=== PATIENT | male | born 1935 | race Caucasian/White ===

== ENCOUNTER 2020-12-30 13:46 | Inpatient (IN) | payer BC ==
[~2020-12-30] VITALS: Ht 182.9 cm; Wt 67.1 kg
[2020-12-30] MEDS ORDERED: IV NS 0.9% 500 ML BAG IV ONE ×2 (14:00→15:00)
--- NOTE | 2020-12-30 14:00 | NUR ---
The patient is bibra78, from [facility], more altered than usual, BS 120. Respiration regular and unlabored. Attached to the monitor. Warm blanket provided for comfort. Will continue to monitor the patient.
[2020-12-30 14:10] LABS: BASOPHILS # (AUTO) 0.1 /CMM (0.0-0.2); BASOPHILS % (AUTO) 0.7 % (0.0-2.0); EOSINOPHILS % (AUTO) 3.8 % (0.0-6.0); HEMATOCRIT 33 % (39-51); LYMPHOCYTES # (AUTO) 1.2 /CMM (0.8-4.8); LYMPHOCYTES % (AUTO) 13.4 % (20.0-44.0); MEAN CORPUSCULAR HGB CONC 33 g/dl (31.0-36.0); MEAN CORPUSCULAR VOLUME 92 fL (80-96); MONOCYTES # (AUTO) 1.2 /CMM (0.1-1.30); MONOCYTES % (AUTO) 13.1 % (2.0-12.0); NEUTROPHILS # (AUTO) 6.2 /CMM (1.8-8.9); PLATELET COUNT (AUTO) 251 /CMM (150-450); RED BLOOD CELL COUNT(AUTO) 3.59 MIL/uL (4.5-6.0)
[2020-12-30] MEDS ORDERED: AMLO-213 PO (14:15)
[2020-12-30] MEDS ORDERED: RISP0.2515 PO (14:15)
[2020-12-30] MEDS ORDERED: ZINC220C6 PO (14:15)
[2020-12-30] MEDS ORDERED: MEMA1CAP3 PO (14:15)
[2020-12-30] MEDS ORDERED: LEVO150T8 PO (14:15)
[2020-12-30] MEDS ORDERED: PANT40TA2 PO (14:15)
[2020-12-30] MEDS ORDERED: DIVA-76 PO (14:15)
[2020-12-30 14:25] LABS: ALANINE AMINOTRANSFERASE 9 U/L (12-78); ALBUMIN 2.4 g/dL (3.4-5.0); ALKALINE PHOSPHATASE 70 U/L (46-116); ASPARTATE AMINOTRANSFERASE 12 U/L (15-37); BILIRUBIN,DIRECT 0.1 mg/dL (0.0-0.2); BILIRUBIN,TOTAL 0.3 mg/dL (0.2-1.0); CALCIUM, SERUM 8.3 mg/dL (8.5-10.1); CARBON DIOXIDE 24 mmol/L (21-32); CHLORIDE 105 mmol/L (98-107); CREATININE 0.9 mg/dL (0.6-1.3); GLUCOSE 104 mg/dL (74-106); POTASSIUM 3.7 mmol/L (3.5-5.1); SODIUM SERUM 139 mmol/L (136-145); TOTAL PROTEIN, SERUM 6.1 g/dL (6.4-8.2); UREA NITROGEN, BLOOD 12 mg/dL (7-18)
--- NOTE | 2020-12-30 14:47 | NUR ---
URINE COLLECTED AND SENT TO THE LAB
[2020-12-30 15:07] LABS: BILIRUBIN,URINE Negative (NEGATIVE); COLOR,URINE YELLOW (YELLOW); LEUKOCYTE ESTERASE ,URINE Large (NEGATIVE); NITRITE, URINE Positive (NEGATIVE); PH,URINE 5.5 (5.0-8.0); PROTEIN,URINE Negative (NEGATIVE); UGLUCOSE Negative (NEGATIVE); UROBILINOGEN,URINE 0.2 EU/dL (0.2)
[2020-12-30 15:13] LABS: BACTERIA,URINE Many /HPF (None Seen); SQUAMOUS EPITHELIAL CELL,UR 0-2 /HPF (None Seen); WBC,URINE 81-100 /HPF (0-3)
--- NOTE | 2020-12-30 15:26 | NUR ---
[facility] CALLED THEY ARE WORKING ON IT AND WILL RELEASE IN A BIT.
[2020-12-30] MEDS ORDERED: MEROPENEM 1,000 MG in IV NS 0.9% 100 ML IV ONE (15:30)
--- NOTE | 2020-12-30 15:37 | NUR ---
MOVE SHEET SUBMITTED AND CALLED FOR TELE BED.
--- NOTE | 2020-12-30 15:39 | NUR ---
GOT BED 102
--- NOTE | 2020-12-30 16:34 | NUR ---
LAB CALLED PT COVID RESULT NEGATIVE, (-).
--- NOTE | 2020-12-30 16:36 | NUR ---
covid negative per lab
[2020-12-30 17:00] VITALS: BP 113/57
--- NOTE | 2020-12-30 17:00 | NUR ---
RN OPENING NOTES RECEIVED PT FROM ER, REPORT GIVEN BY IRENE BLUM. A/O X1. CONFUSED. STABLE ON ROOM AIR. IV ACCESS AT LFA #20 INTACT, PATENT AND FLUSHED. NO COMPLAINS OF PAIN. SKIN IS INTACT. FLEXION OF BLE. SAFETY MEASURES IN PLACE. BED LOCKED AND AT LOWEST POSITION WITH SIDE RAILS UP X3. CALL LIGHT WITHIN REACH. BELONGINGS LIST CHECKED. WILL CONTINUE TO MONITOR.
--- NOTE | 2020-12-30 17:09 | NUR ---
The patient is transfered to [facility] per acls protocol and in stable condition.
[2020-12-30] MEDS ORDERED: ACETAMINOPHEN 325 MG TABLET PO PRN (18:00)
[2020-12-30] MEDS ORDERED: Z GUARD REMEDY 2 OZ OINT TP PRN (18:00)
[2020-12-30] MEDS ORDERED: ONDANSETRON HCL/PF 4 MG/2 ML VIAL IVP PRN (18:00)
[2020-12-30] MEDS ORDERED: MAGNESIUM HYDROXIDE 30 ML UDC PO PRN (18:00)
[2020-12-30] MEDS ORDERED: HYDROCODONE/APAP 5/325MG TABLET PO PRN (18:00)
[2020-12-30] MEDS ORDERED: ZOLPIDEM TARTRATE 5 MG TABLET PO PRN (18:00)
[2020-12-30] MEDS ORDERED: MAG HYDROX/AL HYDROX/SIMETH 30 ML UDC PO PRN (18:00)
[2020-12-30] MEDS ORDERED: CEFTRIAXONE 1 G VIAL IM SCH (18:00)
[2020-12-30] MEDS: CEFTRIAXONE 1 G in IV D5W 50 ML IV SCH (18:27)
[2020-12-30] MEDS: AZITHROMYCIN 500 MG in IV D5W 250 ML IV SCH (19:14)
--- NOTE | 2020-12-30 19:35 | NUR ---
RN CLOSING NOTES NO SIGNIFICANT CHANGES THROUGHOUT THE SHIFT. ALL DUE MEDS GIVEN. NEEDS ATTENDED. NO SOB. DENIES PAIN. SAFETY MEASURES STILL IN PLACE. WILL ENDORSE TO NIGHT RN FOR GINNA.
--- NOTE | 2020-12-30 19:56 | NUR ---
RN NOTE PATIENT IN BED AWAKE. A/O X 1. NO SOB OR ANY RESPIRATORY DISTRESS. ON ROOM AIR, O2 SAT 97%. DENIES ANY PAIN OR DISCOMFORT. IV ACCESS ON LEFT FOREARM #20 PATENT AND INTACT. NO S/S OF INFILTRATION. BED LOCKED AND IN LOWEST POSITION. SAFETY MEASURES IMPLEMENTED. CALL LIGHT WITHIN REACH. WILL CONTINUE TO MONITOR.
[2020-12-30 20:00] VITALS: BP 102/59
[2020-12-31] VITALS: BP 113/55
[2020-12-31 04:00] VITALS: BP 117/67
--- NOTE | 2020-12-31 06:38 | NUR ---
RN NOTE PATIENT A/O X 1. NO SOB NOTED. ON ROOM AIR, O2 SAT 96%. DENIES ANY PAIN OR DISCOMFORT. IV ACCESS ON LEFT FOREARM #20 PATENT AND INTACT. NO S/S OF INFILTRATION. NO SIGNIFICANT CHANGES DURING THIS SHIFT. KEPT CLEAN AND DRY. BED LOCKED AND IN LOWEST POSITION. SAFETY MEASURES IMPLEMENTED. CALL LIGHT WITHIN REACH. WILL ENDORSE TO AM SHIFT.
[2020-12-31 06:57] LABS: BASOPHILS # (AUTO) 0.1 /CMM (0.0-0.2); BASOPHILS % (AUTO) 0.7 % (0.0-2.0); EOSINOPHILS % (AUTO) 1.2 % (0.0-6.0); HEMATOCRIT 33 % (39-51); LYMPHOCYTES # (AUTO) 0.9 /CMM (0.8-4.8); LYMPHOCYTES % (AUTO) 7.8 % (20.0-44.0); MEAN CORPUSCULAR HGB CONC 33 g/dl (31.0-36.0); MEAN CORPUSCULAR VOLUME 92 fL (80-96); MONOCYTES # (AUTO) 1.3 /CMM (0.1-1.30); MONOCYTES % (AUTO) 12.1 % (2.0-12.0); NEUTROPHILS # (AUTO) 8.7 /CMM (1.8-8.9); NEUTROPHILS % (AUTO) 78.2 % (43.0-81.0); PLATELET COUNT (AUTO) 233 /CMM (150-450); RED BLOOD CELL COUNT(AUTO) 3.64 MIL/uL (4.5-6.0)
--- NOTE | 2020-12-31 07:27 | NUR ---
RN NOTE PATIENT A/O X 1. NO SOB NOTED. ON ROOM AIR, O2 SAT 96%. DENIES ANY PAIN OR DISCOMFORT. IV ACCESS ON LEFT FOREARM #20 PATENT AND INTACT. NO S/S OF INFILTRATION. KEPT CLEAN AND DRY. BED LOCKED AND IN LOWEST POSITION. SAFETY MEASURES IMPLEMENTED. CALL LIGHT WITHIN REACH.
[2020-12-31 07:43] LABS: CALCIUM, SERUM 8.3 mg/dL (8.5-10.1); CARBON DIOXIDE 23 mmol/L (21-32); CHLORIDE 107 mmol/L (98-107); CREATININE 0.8 mg/dL (0.6-1.3); GLUCOSE 89 mg/dL (74-106); MAGNESIUM 1.8 mg/dL (1.8-2.4); PHOSPHORUS 2.8 mg/dL (2.5-4.9); POTASSIUM 3.8 mmol/L (3.5-5.1); SODIUM SERUM 140 mmol/L (136-145); UREA NITROGEN, BLOOD 12 mg/dL (7-18)
[2020-12-31 07:55] LABS: CHOLESTEROL 157 mg/dL (<200); HDL CHOLESTEROL 54 mg/dL (40-60); LDL 87 mg/dL (0-99); THYROID STIMULATING HORMONE < 0.007 uIU/mL (0.358-3.74); TRIGLYCERIDES 43 mg/dL (30-150)
[2020-12-31 08:00] VITALS: BP 99/63
[2020-12-31] MEDS: ENSURE ENLIVE 237 ML LIQUID (VANILLA) PO SCH ×3 (10:12→17:00)
[2020-12-31] MEDS: PANTOPRAZOLE 40 MG TABLET.DR PO SCH (10:12)
[2020-12-31 12:00] VITALS: BP 96/78
[2020-12-31 16:00] VITALS: BP 99/78
[2020-12-31] MEDS: CEFTRIAXONE 1 G in IV D5W 50 ML IV SCH (18:58)
--- NOTE | 2020-12-31 19:29 | NUR ---
RN NOTE PATIENT IN BED AWAKE. A/O X 1. NO SOB OR ANY RESPIRATORY DISTRESS. ON ROOM AIR, O2 SAT WNL. DENIES ANY PAIN OR DISCOMFORT. IV ACCESS ON LEFT FOREARM #20 PATENT AND INTACT. NO S/S OF INFILTRATION. BED LOCKED AND IN LOWEST POSITION. SAFETY MEASURES IMPLEMENTED. CALL LIGHT WITHIN REACH. PATIENT RESTING COMFORTABLY IN BED.
[2020-12-31] MEDS: AZITHROMYCIN 500 MG in IV D5W 250 ML IV SCH (19:37)
[2020-12-31 20:00] VITALS: BP 114/60
[2021-01-01 04:00] VITALS: BP 136/83
--- NOTE | 2021-01-01 06:51 | NUR ---
RN NOTE PATIENT IN BED A/O X 1. NO SOB NOTED. ON ROOM AIR, O2 SAT WNL. DENIES ANY PAIN OR DISCOMFORT. IV ACCESS ON RIGHT WRIST #24 PATENT AND INTACT. NO S/S OF INFILTRATION. NO SIGNIFICANT CHANGES. ALL NEEDS ATTENDED PROMPTLY. BED LOCKED AND IN LOWEST POSITION. SAFETY MEASURES IMPLEMENTED. CALL LIGHT WITHIN REACH. WILL ENDORSE TO AM SHIFT.
[2021-01-01 06:53] LABS: BASOPHILS # (AUTO) 0.1 /CMM (0.0-0.2); BASOPHILS % (AUTO) 1.2 % (0.0-2.0); EOSINOPHILS % (AUTO) 4.8 % (0.0-6.0); HEMATOCRIT 33 % (39-51); HEMOGLOBIN 10.9 g/dL (13.5-17.5); LYMPHOCYTES # (AUTO) 1.2 /CMM (0.8-4.8); LYMPHOCYTES % (AUTO) 12.6 % (20.0-44.0); MEAN CORPUSCULAR HGB CONC 33 g/dl (31.0-36.0); MEAN CORPUSCULAR VOLUME 93 fL (80-96); MONOCYTES # (AUTO) 1.6 /CMM (0.1-1.30); MONOCYTES % (AUTO) 17.1 % (2.0-12.0); NEUTROPHILS % (AUTO) 64.3 % (43.0-81.0); PLATELET COUNT (AUTO) 238 /CMM (150-450); RED BLOOD CELL COUNT(AUTO) 3.57 MIL/uL (4.5-6.0); WHITE BLOOD COUNT (AUTO) 9.3 K/uL (4.3-11.0)
[2021-01-01 07:24] LABS: ALBUMIN 2.4 g/dL (3.4-5.0); BILIRUBIN,TOTAL 0.4 mg/dL (0.2-1.0); CALCIUM, SERUM 8.3 mg/dL (8.5-10.1); CREATININE 0.7 mg/dL (0.6-1.3); MAGNESIUM 1.8 mg/dL (1.8-2.4); PHOSPHORUS 2.7 mg/dL (2.5-4.9); POTASSIUM 3.6 mmol/L (3.5-5.1)
--- NOTE | 2021-01-01 07:40 | NUR ---
MS/RN PT IS RESTING IN THE BED .AWAKE,ALERT.V/S STABLE,AFEBRILE.NO PAIN REPORTED AT THIS TIME.IV -HL. ON ROOM AIR,SAT O2-96%. INCONTINENT .BED BOUND.SKIN INTACT.LABS REVIEW.REPOSITION FOR COMFORT.
[2021-01-01 08:00] VITALS: BP 112/64
[2021-01-01] MEDS: PANTOPRAZOLE 40 MG TABLET.DR PO SCH (08:29)
[2021-01-01] MEDS: ENSURE ENLIVE 237 ML LIQUID (VANILLA) PO SCH ×3 (08:31→16:28)
--- NOTE | 2021-01-01 09:00 | NUR ---
MS/RN DUE MEDS ARE GIVEN ORDERED.PT EATS 50% FROM HIS MEAL TRAY HELPED WITH ASSISTANCE.
[2021-01-01 12:00] VITALS: BP 120/64
[2021-01-01 16:00] VITALS: BP 124/64
[2021-01-01] MEDS: CEFTRIAXONE 1 G in IV D5W 50 ML IV SCH (16:28)
[2021-01-01] MEDS: AZITHROMYCIN 500 MG in IV D5W 250 ML IV SCH (17:09)
--- NOTE | 2021-01-01 19:30 | NUR ---
MS RN OPENING NOTE RECEIVED PATIENT IN BED. A/OX1. TOLERATING ROOM AIR. RESPIRATIONS ARE EVEN AND UNLABORED. NO S/S SOB NOTED. NO C/O PAIN AT THIS TIME. IN NO APPARENT DISTRESS. IV ACCESS IN RIGHT WRIST #24 RUNNING ABX. BED IS LOW AND LOCKED, HOB ELEVATED IN HIGH FOWLERS, SIDE RIAL SUP X3, CALL LIGHT WITHIN REACH. WILL CONTINUE TO MONITOR THROUGHOUT SHIFT.
[2021-01-01 20:00] VITALS: BP 119/59
--- NOTE | 2021-01-01 21:44 | NUR ---
MS RN NOTE INFORMED LINEN CONTROLLER LEHR STRIPPER BRYN ALVAREZ THAT PATIENTS MED RECON HAS NOT BEEN REVIEWED.
[2021-01-01] MEDS: DIVALPROEX SODIUM 250 MG TABLET.DR PO SCH (22:04)
[2021-01-01] MEDS: DONEPEZIL 5 MG TABLET PO SCH (22:04)
[2021-01-02 04:00] VITALS: BP 119/60
--- NOTE | 2021-01-02 06:15 | NUR ---
MS RN CLOSING NOTE PATIENT RESTING IN BED. A/OX1. REMAINS TOLERATING ROOM AIR. NO RESP DISTRESS. NO C/O PAIN THROUGHOUT SHIFT. NO DISTRESS. IV ACCESS MAINTAINED IN RIGHT WRIST. BED REMAINS LOW AND LOCKED, HOB ELEVATED IN HIGH FOWLERS, SIDE RIALS UP X3, CALL LIGHT WITHIN REACH. WILL ENDORSE TO ONCOMING SHIFT.
[2021-01-02 06:17] LABS: BASOPHILS # (AUTO) 0.1 /CMM (0.0-0.2); BASOPHILS % (AUTO) 1.1 % (0.0-2.0); EOSINOPHILS % (AUTO) 4.8 % (0.0-6.0); HEMATOCRIT 31 % (39-51); HEMOGLOBIN 10.3 g/dL (13.5-17.5); LYMPHOCYTES # (AUTO) 1.6 /CMM (0.8-4.8); LYMPHOCYTES % (AUTO) 16.7 % (20.0-44.0); MEAN CORPUSCULAR HGB CONC 34 g/dl (31.0-36.0); MEAN CORPUSCULAR VOLUME 92 fL (80-96); MONOCYTES # (AUTO) 1.6 /CMM (0.1-1.30); MONOCYTES % (AUTO) 16.8 % (2.0-12.0); NEUTROPHILS # (AUTO) 5.9 /CMM (1.8-8.9); NEUTROPHILS % (AUTO) 60.6 % (43.0-81.0); PLATELET COUNT (AUTO) 260 /CMM (150-450); RED BLOOD CELL COUNT(AUTO) 3.31 MIL/uL (4.5-6.0); WHITE BLOOD COUNT (AUTO) 9.8 K/uL (4.3-11.0)
[2021-01-02 06:53] LABS: ALBUMIN 2.1 g/dL (3.4-5.0); BILIRUBIN,TOTAL 0.2 mg/dL (0.2-1.0); CALCIUM, SERUM 7.9 mg/dL (8.5-10.1); CREATININE 0.8 mg/dL (0.6-1.3); MAGNESIUM 1.8 mg/dL (1.8-2.4); PHOSPHORUS 2.6 mg/dL (2.5-4.9); POTASSIUM 4.1 mmol/L (3.5-5.1); TOTAL PROTEIN, SERUM 5.5 g/dL (6.4-8.2)
--- NOTE | 2021-01-02 07:30 | NUR ---
RN OPENING NOTES PATIENT PRESENT IN BED, A/OX1, ON ROOM AIR, SPO2 99%, NO SOB NOTED, FLACC SCORE 0, RESTING COMFORTABLY, IV LINE PATENT, INTACT, RUNNING TKO FLUIDS, TOLERATING WELL, HOB ELEVATED, BED LOCKED, IN LOWEST POSITION, CALL LIGHT IN REACH, WILL CONT TO MONITOR
[2021-01-02] MEDS: LEVOTHYROXINE SODIUM 75 MCG TABLET PO SCH (07:44)
[2021-01-02] MEDS: PANTOPRAZOLE 40 MG TABLET.DR PO SCH (07:44)
[2021-01-02] MEDS: ENSURE ENLIVE 237 ML LIQUID (VANILLA) PO SCH ×3 (07:48→17:15)
[2021-01-02 08:00] VITALS: BP 109/59
[2021-01-02] MEDS: ZINC SULFATE 220 MG CAPSULE PO SCH (08:47)
[2021-01-02] MEDS: MEMANTINE HCL 5 MG TABLET PO SCH (08:47)
[2021-01-02] MEDS: DIVALPROEX SODIUM 250 MG TABLET.DR PO SCH (08:47)
[2021-01-02] MEDS ORDERED: risperiDONE 0.25 MG TABLET PO SCH (09:00)
[2021-01-02 09:14] LABS: BAND % (MANUAL) 1 % (0.0-5.0); EOSINOPHILS % (MANUAL) 4 % (0-4); LYMPHOCYTES % (MANUAL) 25 % (16-48); MONOCYTES % (MANUAL) 8 % (0-11.0); NEUTROPHILS % (MANUAL) 62 (42-76)
[2021-01-02] MEDS: AMLODIPINE BESYLATE 10 MG TABLET PO SCH (09:50)
[2021-01-02] MEDS: MEROPENEM 1 G in IV NS 0.9% 100 ML IV SCH ×2 (11:29→18:55)
[2021-01-02 12:00] VITALS: BP 96/59
[2021-01-02] MEDS ORDERED: MEROPENEM 500 MG in IV NS 0.9% 50 ML IV SCH (13:00)
[2021-01-02] MEDS: AZITHROMYCIN 500 MG in IV D5W 250 ML IV SCH (17:38)
--- NOTE | 2021-01-02 19:01 | NUR ---
RN CLOSING NOTES REMAIN IN ROOM, NO ACUTE CHANGES DURING SHIFT, FOOD INTAKE WAS MORE THAN 75% FOR DINNER, WAS ABLE TO FINISH 2 BOTTLES OF ENSURE, COMFORT NEEDS ATTENDED, CLEANED, REPOSITIONED, MEDICATIONS GIVEN, WILL ENDORSE TO PM SHIFT RN FOR GINNA
--- NOTE | 2021-01-02 19:30 | NUR ---
RN NOTE RECEIVED PT SLEEPING, AROUSES EASILY. NO SIGNS OF DISTRESS OR PAIN NOTED. BREATHING EVEN AND UNLABORED. IV ON R WRIST PATENT AND INTACT, IV ATB MERREM RUNNING, NO SIGNS OF INFILTRATION NOTED. ALL SAFETY MEASURES IMPLEMENTED PER PROTOCOL. BED LOCKED IN LOWEST POSITION. SIDE RAILS UP. WILL CONTINUE TO MONITOR.
[2021-01-02 20:00] VITALS: BP 106/57
[2021-01-02] MEDS: OLANZAPINE 2.5 MG TABLET PO SCH (21:28)
[2021-01-02] MEDS: DONEPEZIL 5 MG TABLET PO SCH (21:28)
[2021-01-03] MEDS: MEROPENEM 1 G in IV NS 0.9% 100 ML IV SCH ×3 (03:17→18:36)
[2021-01-03 04:00] VITALS: BP 120/63
--- NOTE | 2021-01-03 07:05 | NUR ---
RN CLOSING NOTES PT REMAIN STABLE. NO SIGNIFICANT CHANGES NOTED. BREATHING EVEN AND UNLABORED, TOLERATING ROOM AIR, REMAIN AFEBRILE. ALL NEEDS ATTENDED. WILL ENDORSE TO NEXT SHIFT NURSE FOR GINNA.
--- NOTE | 2021-01-03 07:30 | NUR ---
RN OPENING NOTES PATIENT PRESENT IN BED, A/OX2, ON ROOM AIR, SATURATING WELL, SPO2 97%, NO SOB NOTED, DENIES PAIN , SKIN INTACT ; RESTING COMFORTABLY, IV LINE PATENT, INTACT, RUNNING TKO FLUIDS, TOLERATING WELL, HOB ELEVATED, BED LOCKED, IN LOWEST POSITION, CALL LIGHT IN REACH, WILL CONT TO MONITOR
[2021-01-03] MEDS: PANTOPRAZOLE 40 MG TABLET.DR PO SCH (08:19)
[2021-01-03] MEDS: LEVOTHYROXINE SODIUM 75 MCG TABLET PO SCH (08:19)
[2021-01-03] MEDS: ZINC SULFATE 220 MG CAPSULE PO SCH (08:19)
[2021-01-03] MEDS: MEMANTINE HCL 5 MG TABLET PO SCH (08:20)
[2021-01-03] MEDS: DIVALPROEX SODIUM 250 MG TABLET.DR PO SCH (08:20)
[2021-01-03] MEDS: AMLODIPINE BESYLATE 10 MG TABLET PO SCH (08:24)
[2021-01-03] MEDS: ENSURE ENLIVE 237 ML LIQUID (VANILLA) PO SCH ×3 (08:38→17:07)
[2021-01-03 11:00] VITALS: BP 104/64
[2021-01-03 12:00] VITALS: BP 104/64
[2021-01-03] MEDS ORDERED: AZITHROMYCIN 250 MG TABLET PO SCH (18:00)
--- NOTE | 2021-01-03 18:21 | NUR ---
PER ENGINEER AUTOMATED EQUIPMENT DC PENDING DUE INSURANCE ISSUES, NOTIFIED
--- NOTE | 2021-01-03 19:01 | NUR ---
RN CLOSING NOTES REMAINS IN ROOM, NO ACUTE CHANGES DURING SHIFT, FOOD INTAKE WAS MORE THAN 75% FOR DINNER, WAS ABLE TO FINISH 3 BOTTLES OF ENSURE, COMFORT NEEDS ATTENDED, CLEANED, REPOSITIONED, MEDICATIONS GIVEN, WILL ENDORSE TO PM SHIFT RN FOR GINNA
[2021-01-03 20:00] VITALS: BP 101/50
--- NOTE | 2021-01-03 20:00 | NUR ---
RN OPENING NOTES PATIENT IN BED, A/OX2, ON ROOM AIR, SPO2 98%, NO SOB NO DISTRESS NOTED BREATHING EVEN UNLABORED,NO COMPLAIN OF PAIN 0/10 NO FACIAL GRIMACES NOTED , RESTING COMFORTABLY, IV LINE PATENT, INTACT, RUNNING TKO FLUIDS, TOLERATING WELL, HOB ELEVATED, BED LOCKED, IN LOWEST POSITION, CALL LIGHT IN REACH, WILL CONT TO MONITOR ,PTS DISCHARGE HOLD D/T INSURANCE ISSUE ,PENDING SNF PLACEMENT,WILL CONTINUE TO MONITOR PTS.
[2021-01-03] MEDS: DONEPEZIL 5 MG TABLET PO SCH (21:09)
[2021-01-03] MEDS: OLANZAPINE 2.5 MG TABLET PO SCH (21:09)
[2021-01-04] MEDS: MEROPENEM 1 G in IV NS 0.9% 100 ML IV SCH ×3 (03:31→18:39)
[2021-01-04 04:00] VITALS: BP 107/59
--- NOTE | 2021-01-04 07:17 | NUR ---
RN CLOSING NOTE: PATIENT REMAINS IN ROOM IN NO SIGNS OF RESPIRATORY DISTRESS, PATIENT STILL ON ROOM AIR;TOLERATING WELL SATURATING @ >95% SP02. SAFETY MEASURES IMPLEMENTED, BED IN LOWEST POSITION, LOCKED, SIDE RAILS UP, CALL LIGHT WITHIN REACH. ALL NEEDS AND ORDERS ADDRESSED DURING THE SHIFT. IV ACCESS MAINTAINED INTACT, SECURED AND FLUSHING WELL. ALL DUE MEDS GIVEN ORDERED & SCHEDULED ; PATIENT TOLERATED WELL. PATIENT KEPT CLEAN AND COMFORTABLE WITHIN THE SHIFT. PATIENT ENDORSED TO INCOMING SHIFT RN WITH STABLE VITAL SIGN AND FOR CONTINUITY OF CARE.
--- NOTE | 2021-01-04 07:30 | NUR ---
RN OPENING NOTE PATIENT PRESENT IN BED, RESTING COMFORTABLY, ON ROOM AIR, RESPIRATIONS EVEN AND UNLABORED, SPO2 98%, DENIES PAIN, REPOSITIONED FOR COMFORT, IV LINE INTACT, PATENT, RUNNING TKO NS @ 10 CC/HR, TOLERATING WELL, SAFETY MEASURES IN PLACE, HOB ELEVATED, BED LOCKED, IN LOWEST POSITION, WILL CONT TO MONITOR
[2021-01-04] MEDS: LEVOTHYROXINE SODIUM 75 MCG TABLET PO SCH (07:44)
[2021-01-04] MEDS: PANTOPRAZOLE 40 MG TABLET.DR PO SCH (07:44)
[2021-01-04] MEDS: ENSURE ENLIVE 237 ML LIQUID (VANILLA) PO SCH ×3 (07:44→17:22)
[2021-01-04] MEDS: DIVALPROEX SODIUM 250 MG TABLET.DR PO SCH (08:47)
[2021-01-04] MEDS: MEMANTINE HCL 5 MG TABLET PO SCH (08:47)
[2021-01-04] MEDS: AMLODIPINE BESYLATE 10 MG TABLET PO SCH (08:48)
[2021-01-04] MEDS: ZINC SULFATE 220 MG CAPSULE PO SCH (08:48)
[2021-01-04 12:00] VITALS: BP 109/60
--- NOTE | 2021-01-04 18:45 | NUR ---
RN CLOSING NOTES RESTING COMFORTABLY IN BED, NO ACUTE CHANGES DURING SHIFT, MEDICATIONS GIVEN, COMFORT NEEDS ATTENDED, CLEANED, REPOSITIONED,WILL ENDORSE TO PM SHIFT RN FOR GINNA
[2021-01-04 20:00] VITALS: BP 134/57
[2021-01-05] MEDS: DONEPEZIL 5 MG TABLET PO SCH ×2 (00:04→21:42)
[2021-01-05] MEDS: OLANZAPINE 2.5 MG TABLET PO SCH ×2 (00:05→21:43)
[2021-01-05] MEDS: MEROPENEM 1 G in IV NS 0.9% 100 ML IV SCH (03:13)
--- NOTE | 2021-01-05 03:51 | NUR ---
RN notes Alert and oriented with confusion, slurred speech. Lying in bed resting comfortably with no distress noted. Breathing even and unlabored, room air well tolerated. No complaint of pain. No significant change of condition. Vital signs wnl. Kept clean and dry. Will endorse to next shift for continuity of care.
[2021-01-05 04:00] VITALS: BP 115/74
--- NOTE | 2021-01-05 08:00 | NUR ---
RN NOTES RECEIVED PATIENT IN THE BED A/O X1/2, WITH FORGETFULNESS. PATIENT TOTAL CARE, TOTAL ASSIST TO FEEDING PRONE TO ASPIRATION PRECAUTION, KEEP HOB ELEVATED DURING FEEDING 90 DEGREE. ADMINISTERED SCHEDULED MEDICATION WITH CRUSHED AND MIXED WITH APPLE SAUCE. PATIENT HAS IV TKO 10ML/HR INFUSION ON RIGHT WRIST. PATIENT INCONTINENT, ASSIST TURN AND REPOSTION Q 2 HR, CALL LIGHT WITHIN TO REACH. WILL MONITORING.
[2021-01-05] MEDS: ENSURE ENLIVE 237 ML LIQUID (VANILLA) PO SCH ×3 (08:32→16:27)
[2021-01-05] MEDS: AMLODIPINE BESYLATE 10 MG TABLET PO SCH (08:47)
[2021-01-05] MEDS: ZINC SULFATE 220 MG CAPSULE PO SCH (08:48)
[2021-01-05] MEDS: PANTOPRAZOLE 40 MG TABLET.DR PO SCH (08:48)
[2021-01-05] MEDS: DIVALPROEX SODIUM 250 MG TABLET.DR PO SCH (08:48)
[2021-01-05] MEDS: LEVOTHYROXINE SODIUM 75 MCG TABLET PO SCH (08:48)
[2021-01-05] MEDS: MEMANTINE HCL 5 MG TABLET PO SCH (08:48)
[2021-01-05] MEDS ORDERED: MEROPENEM 500 MG in IV NS 0.9% 100 ML IV SCH (10:00)
--- NOTE | 2021-01-05 10:00 | NUR ---
rn notes inserted new iv access on left FA infusing tko at 10ml/hr.
--- NOTE | 2021-01-05 11:23 | NUR ---
rn notes patient congested upper chest and keep coughing, notified DR Teran for orders. also suction, and put on o2-2lnc. will monitoring. waiting Md responding.
--- NOTE | 2021-01-05 11:34 | NUR ---
RN NOTES get respond back from hospitalist Dr Rojas and get order chest x-ray stat, order taken and carried out.
[2021-01-05] MEDS: MEROPENEM 500 MG in IV NS 0.9% 100 ML IV SCH ×2 (11:41→20:28)
--- NOTE | 2021-01-05 11:52 | NUR ---
RN NOTES HELD INSURE BECAUSE PATIENT PRONE TO ASPIRATION.
[2021-01-05 12:00] VITALS: BP 115/62
--- NOTE | 2021-01-05 12:46 | NUR ---
rn notes FINDINGS: The heart is within normal limits. The thoracic aorta is calcified. The lungs are clear. There is no pleural effusion or pneumothorax. patient on o2-2lnc, prone to aspiration precaution. assist turn and reposition q 2 hr. will monitoring.
[2021-01-05] MEDS ORDERED: ALBUTEROL HALF STRENGTH 1.25 MG/3 ML VIAL.NEB NEB PRN (16:30)
--- NOTE | 2021-01-05 16:36 | NUR ---
RN NOTES PATIENT CONFUSED, CONGESTED ON O22LNC . GETTING BREATHING TX AT THIS TIME VIA RT. SON NEXT TO THE BED.
--- NOTE | 2021-01-05 17:33 | NUR ---
rn notes patient coughing no stop , lots of secretion, suction, get new order via hospitalist hydrocodone 5mg syrup. order taken and carried out.
[2021-01-05] MEDS ORDERED: HYDROCODONE BIT/HOMATROPINE 5 ML UDC PO PRN (18:00)
--- NOTE | 2021-01-05 18:08 | NUR ---
rn notes administered hydrocodone syrup 5 ml for cough prn. assist eating. Patient on [id number], suction, needs attended and anticipated. call light within to reach. assist turn and reposition q 2 hr. endorsed oncoming nurse dena.
[2021-01-05 20:00] VITALS: BP 106/54
--- NOTE | 2021-01-05 20:00 | NUR ---
rn note received pt in bed a/a/ox1, pt on ra sating 95%, pt has unlabored breathing will continue with plan ofa care.
[2021-01-06] MEDS: MEROPENEM 500 MG in IV NS 0.9% 100 ML IV SCH ×3 (03:54→20:23)
[2021-01-06 04:00] VITALS: BP 120/58
--- NOTE | 2021-01-06 07:22 | NUR ---
rn note report given to oncoming shift for dena.
--- NOTE | 2021-01-06 07:30 | NUR ---
RN OPENING NOTE PATIENT IS IN BED WITH HBO AT SEMI FOWLERS POSITION. PATIENT IS CURRENTLY ON 2L NC WITH NO SIGNS OF LABORED BREATHING. SKIN IS INTACT. RWRIST#20 IS PATENT AND INTACT. BED IS LOCKED IN THE LOWEST POSITION, 3 GUARD RAILS RAISED, CALL GREY WITHIN REACH, AND ALL HOSPITAL SAFETY PRECAUTIONS ARE BEING FOLLOWED. WILL CONTINUE TO MONITOR THROUGHOUT SHIFT.
[2021-01-06] MEDS: MEMANTINE HCL 5 MG TABLET PO SCH (08:12)
[2021-01-06] MEDS: ZINC SULFATE 220 MG CAPSULE PO SCH (08:12)
[2021-01-06] MEDS: DIVALPROEX SODIUM 250 MG TABLET.DR PO SCH (08:12)
[2021-01-06] MEDS: LEVOTHYROXINE SODIUM 75 MCG TABLET PO SCH (08:12)
[2021-01-06] MEDS: ENSURE ENLIVE 237 ML LIQUID (VANILLA) PO SCH ×3 (08:13→17:00)
[2021-01-06] MEDS: PANTOPRAZOLE 40 MG TABLET.DR PO SCH (08:13)
[2021-01-06] MEDS: AMLODIPINE BESYLATE 10 MG TABLET PO SCH (08:13)
[2021-01-06 16:00] VITALS: BP 109/68
--- NOTE | 2021-01-06 17:00 | NUR ---
rn note administered tylenol for fever of 99.5. will continue to monitor.
--- NOTE | 2021-01-06 18:40 | NUR ---
RN CLOSING NOTE PATIENT IS IN BED WITH HBO AT SEMI FOWLERS POSITION. PATIENT IS CURRENTLY ON 2L NC WITH NO SIGNS OF LABORED BREATHING. SKIN IS INTACT. RWRIST#20 IS PATENT AND INTACT. BED IS LOCKED IN THE LOWEST POSITION, 3 GUARD RAILS RAISED, CALL GREY WITHIN REACH, AND ALL HOSPITAL SAFETY PRECAUTIONS ARE BEING FOLLOWED. ALL DUE MEDS GIVEN AND PATIENT REMAINED STABLE THROUGHOUT SHIFT. WILL ENDORSE TO TOP CAGER RN FOR GINNA.
--- NOTE | 2021-01-06 20:00 | NUR ---
MS RN NOTE PT IN BED ASLEEP, AROSUABLE. A/O X 1, NO SOB, NO DISTRESS OR DISCOMFORT NOTED. NO S/S OF PAIN NOTED. ON O2 2L VIA N/C O2 SAT 97%. RT WRIST SL # 20 G INTACT AND PATENT. SIDE RAILS UP X 3 AND CALL LIGHT WITHIN REACH. VSS. CONTINUE TO MONITOR HIM.
[2021-01-06] MEDS: OLANZAPINE 2.5 MG TABLET PO SCH (21:34)
[2021-01-06] MEDS: DONEPEZIL 5 MG TABLET PO SCH (21:34)
[2021-01-07] MEDS: MEROPENEM 500 MG in IV NS 0.9% 100 ML IV SCH ×2 (03:28→12:20)
[2021-01-07 04:00] VITALS: BP 108/59
--- NOTE | 2021-01-07 06:47 | NUR ---
MS RN NOTE PT IN BED ASLEEP, NO DISTRESS OR DISCOMFORT NOTED. DENIES PAIN. NO CHANGE IN CONDITION DURING THE SHIFT. WILL ENDORSE TO DAY SHIFT NURSE FOR CONTINUE TO CARE.
--- NOTE | 2021-01-07 07:30 | NUR ---
RN OPENING NOTE Patient is alert and responsive to verbal and physical stimuli. He is on 02 2lpm via n/c with 02 sat of 98%. No c.o pain or discomfort. hob kept elevated. Bed is in lowest and locked position. Call light within reach.
[2021-01-07 08:00] VITALS: BP 100/60
[2021-01-07] MEDS: AMLODIPINE BESYLATE 10 MG TABLET PO SCH (09:51)
[2021-01-07] MEDS: MEMANTINE HCL 5 MG TABLET PO SCH (09:51)
[2021-01-07] MEDS: PANTOPRAZOLE 40 MG TABLET.DR PO SCH (09:51)
[2021-01-07] MEDS: LEVOTHYROXINE SODIUM 75 MCG TABLET PO SCH (09:52)
[2021-01-07] MEDS: DIVALPROEX SODIUM 250 MG TABLET.DR PO SCH (09:52)
[2021-01-07] MEDS: ENSURE ENLIVE 237 ML LIQUID (VANILLA) PO SCH ×3 (09:52→17:16)
[2021-01-07] MEDS ORDERED: ZINC SULFATE 220 MG CAPSULE PO SCH (12:00)
--- NOTE | 2021-01-07 14:00 | NUR ---
message left to Ramona ndiaye pt. accepted at [facility] and ambulnce pickup at 4pm.
[2021-01-07 16:00] VITALS: BP 104/57
--- NOTE | 2021-01-07 18:51 | NUR ---
Patient was discharged with ambulance gaurav in a stable condition. On 02 2 liters via n/c with 02 of 98%. No grimacing or moaning noted. Report called in to VIKTORIA dietz and informed regarding patient's condition and medications. Patient left the facility in good stable condition. IV access left in for continuation of medications.
[2021-01-17] MEDS ORDERED: DIVALPROEX SODIUM 125 MG TABLET.DR PO SCH (09:00)
== END 2021-01-07 16:00 | DRG 689 ==
LOC: ER 13:51 → TELE1 15:48 → MEDSG1 12-31 08:19
PROVIDERS: ADMIT Student in an Organized Health Care Education/Training Program
DX: N39.0 Urinary tract infection, site not specified (principal); G93.41 Metabolic encephalopathy; E44.0 Moderate protein-calorie malnutrition; Z16.12 Extended spectrum beta lactamase (ESBL) resistance; E03.9 Hypothyroidism, unspecified; D64.9 Anemia, unspecified; I10 Essential (primary) hypertension; Z20.822 Contact with and (suspected) exposure to COVID-19; K21.9 Gastro-esophageal reflux disease without esophagitis; B96.20 Unspecified Escherichia coli [E. coli] as the cause of diseases classified elsewhere; F03.90 Unspecified dementia, unspecified severity, without behavioral disturbance, psychotic disturbance, mood disturbance, and anxiety; R13.10 Dysphagia, unspecified
CPT/HCPCS: 36415; 70450-TC; 71045-TC; 80048-TC; 80053-TC; 80061-TC; 80076-TC; 81001; 83605-TC; 83735-TC; 84100-TC; 84443-TC; 84484-TC; 85025-TC; 85730-TC; 87040-TC; 87081-TC; 87086-TC; 87186-TC; 94799-TC; 97112-TC; 97530-TC; G0378; J0456; J0696; J2185; J7030; J7040; J7050; J7060; U0003

== ENCOUNTER 2021-02-10 19:22 | Inpatient (IN) | payer BC ==
[~2021-02-10] VITALS: Ht 182.9 cm; Wt 62.1 kg
[~2021-02-10 19:22] MED LIST: AMLO-213 PO; DIVA-76 PO; LEVO150T8 PO; MEMA1CAP3 PO; PANT40TA2 PO; RISP0.2515 PO; ZINC220C6 PO
--- NOTE | 2021-02-10 19:24 | NUR ---
ROJELIO Levi FROM [place] FOR AMS. PER EMS PT HAS AN EPISODE OF CONFUSION AND WAS NOT ANSWERING THE STAFF 1 HR SHAKER OUT. ON TRIAGE PT REPONSIVE, OX2, PT TO BED 6, PLACED ON MONIOR, NOT IN ACUTE DISTRESS, PENDING ER PROVIDER [place]
[2021-02-10 20:18] LABS: BASOPHILS # (AUTO) 0.1 /CMM (0.0-0.2); BASOPHILS % (AUTO) 0.2 % (0.0-2.0); EOSINOPHILS % (AUTO) 0.1 % (0.0-6.0); HEMATOCRIT 36 % (39-51); HEMOGLOBIN 11.6 g/dL (13.5-17.5); LYMPHOCYTES # (AUTO) 0.5 /CMM (0.8-4.8); LYMPHOCYTES % (AUTO) 2.1 % (20.0-44.0); MEAN CORPUSCULAR HGB CONC 32 g/dl (31.0-36.0); MEAN CORPUSCULAR VOLUME 94 fL (80-96); MONOCYTES # (AUTO) 1.9 /CMM (0.1-1.30); MONOCYTES % (AUTO) 7.8 % (2.0-12.0); NEUTROPHILS # (AUTO) 21.8 /CMM (1.8-8.9); NEUTROPHILS % (AUTO) 89.8 % (43.0-81.0); PLATELET COUNT (AUTO) 377 /CMM (150-450); RED BLOOD CELL COUNT(AUTO) 3.89 MIL/uL (4.5-6.0); WHITE BLOOD COUNT (AUTO) 24.3 K/uL (4.3-11.0)
--- NOTE | 2021-02-10 20:34 | NUR ---
BACK FROM CT
[2021-02-10 20:54] LABS: CALCIUM, SERUM 9.1 mg/dL (8.5-10.1); CARBON DIOXIDE 18 mmol/L (21-32); CHLORIDE 104 mmol/L (98-107); CREATININE 1.8 mg/dL (0.6-1.3); GLUCOSE 180 mg/dL (74-106); POTASSIUM 4.4 mmol/L (3.5-5.1); SODIUM SERUM 142 mmol/L (136-145); UREA NITROGEN, BLOOD 17 mg/dL (7-18)
[2021-02-10 20:56] LABS: ABG BASE EXCESS -5.8 mmol/L; ABG OXYGEN SATURATION 94.7 % (92.0-98.5); ABG PCO2 24.8 mmHg (35.0-45.0); ABG PH 7.444 (7.350-7.450); ABG PO2 77.3 mmHg (75.0-100.0); AaDO2 150.6 mmHg; COHb 0.1 % (0.5-1.5); MetHb 0.5 % (0.0-1.5); O2Hb 94.1 % (94.0-97.0); SITE, ABG Right Radial; VENT MODE, BG 4 LNC
[2021-02-10] MEDS ORDERED: VANCOMYCIN 1 GM in IV D5W 250 ML IV ONE (21:00)
[2021-02-10] MEDS ORDERED: MEROPENEM 1,000 MG in IV NS 0.9% 100 ML IV ONE (21:00)
[2021-02-10 21:10] LABS: ALANINE AMINOTRANSFERASE 15 U/L (12-78); ALKALINE PHOSPHATASE 102 U/L (46-116); ASPARTATE AMINOTRANSFERASE 15 U/L (15-37); BILIRUBIN,DIRECT 0.2 mg/dL (0.0-0.2); BILIRUBIN,TOTAL 0.6 mg/dL (0.2-1.0); TOTAL PROTEIN, SERUM 7.6 g/dL (6.4-8.2)
[2021-02-10 21:35] LABS: BILIRUBIN,URINE NEGATIVE (NEGATIVE); COLOR,URINE YELLOW (YELLOW); LEUKOCYTE ESTERASE ,URINE NEGATIVE (NEGATIVE); NITRITE, URINE NEGATIVE (NEGATIVE); PROTEIN,URINE NEGATIVE (NEGATIVE); UGLUCOSE NEGATIVE (NEGATIVE); UROBILINOGEN,URINE 0.2 EU/dL (0.2)
[2021-02-10] MEDS ORDERED: VANCOMYCIN 1 GM VIAL ONE (21:54)
[2021-02-10] MEDS ORDERED: MEROPENEM 1 G VIAL IV ONE (21:54)
[2021-02-10] MEDS ORDERED: IV NS 0.9% 1,000 ML BAG IV ONE (22:00)
--- NOTE | 2021-02-11 00:36 | NUR ---
REPORT GIVEN TO ABRAN BLUM FOR GINNA
--- NOTE | 2021-02-11 00:50 | NUR ---
ADMISSION RN NOTES, RECEIVED 86 YEAR OLD MALE FROM ER DEPARTMENT ACCOMPANIED BY 2 NURSES VIA STRETCHER, UNDER MEDICAL SERVICES OF DR VICTOR MANUEL PISANO MD, WITH ADMITTING DX SEPSIS, PATIENT A/O TO SELF, BREATHING EVEN AND UNLABORED, NO SOB/ACUTE DISTRESS NOTED AT 2LPM VIA NC 02 95% WITH VS 120/72, 90, 20, 97.8, NONAMBULATORY, AFEBRILE WITH BUE/BLE CONTRACTURES, WITH PERINEAL AND BUTTOCKS REDNESS WELL BILATERAL FEET/HEELS REDNESS, AND SKIN TEAR IN RIGHT ARM, IV SITE IN RIGHT HAND 20G, BED BATH GIVEN UPON ADMISSION ATTACHED TO TELE MONITOR AND NSR NOTED WITH HR 90S, CLEAN AND DRY, AND REPOSITION PROVIDED, BED LOCKED AND LOWEST POSITION, WITH S/R OF BED 2X UP, WILL CONTINUE TO MONITOR CLOSELY..
[2021-02-11] MEDS ORDERED: ZOLPIDEM TARTRATE 5 MG TABLET PO PRN (01:00)
[2021-02-11] MEDS ORDERED: MAG HYDROX/AL HYDROX/SIMETH 30 ML UDC PO PRN (01:00)
[2021-02-11] MEDS ORDERED: MAGNESIUM HYDROXIDE 30 ML UDC PO PRN (01:00)
[2021-02-11] MEDS ORDERED: ONDANSETRON HCL/PF 4 MG/2 ML VIAL IVP PRN (01:00)
[2021-02-11] MEDS ORDERED: Z GUARD REMEDY 2 OZ OINT TP PRN (01:00)
[2021-02-11] MEDS ORDERED: ACETAMINOPHEN 325 MG TABLET PO PRN (01:00)
[2021-02-11] MEDS: IV NS 0.9% 1,000 ML IV SCH ×2 (01:56→11:59)
[2021-02-11 04:00] VITALS: BP 115/87
[2021-02-11] MEDS ORDERED: CEFEPIME 2 GM in IV D5W 100 ML IV ONE (05:00)
[2021-02-11] MEDS ORDERED: CEFEPIME 2 GM in IV D5W 100 ML IV SCH (05:00)
[2021-02-11 06:52] LABS: CALCIUM, SERUM 8.3 mg/dL (8.5-10.1); CREATININE 1.2 mg/dL (0.6-1.3); POTASSIUM 3.8 mmol/L (3.5-5.1)
[2021-02-11 06:57] LABS: ALBUMIN 2.7 g/dL (3.4-5.0); BILIRUBIN,DIRECT 0.2 mg/dL (0.0-0.2); BILIRUBIN,TOTAL 0.5 mg/dL (0.2-1.0); TOTAL PROTEIN, SERUM 6.7 g/dL (6.4-8.2)
--- NOTE | 2021-02-11 07:00 | NUR ---
RN NOTES, NO SIGNIFICANT CHANGE IN CONDITION DURING THE REST OF THE SHIFT CONTINUE WITH IVF ORDERED.
[2021-02-11] MEDS: AMLODIPINE BESYLATE 10 MG TABLET PO SCH (08:23)
[2021-02-11] MEDS: CEFEPIME 2 GM in IV D5W 100 ML IV SCH ×2 (08:23→19:37)
[2021-02-11] MEDS: LEVOTHYROXINE SODIUM 75 MCG TABLET PO SCH (08:23)
[2021-02-11] MEDS: MEMANTINE HCL 5 MG TABLET PO SCH ×2 (08:37→17:45)
--- NOTE | 2021-02-11 11:17 | NUR ---
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 RECOMMENDATIONS MADE FOR SKIN PROTECTION. DISCUSSED WITH NURSING STAFF. PT NOTED TO BE INCONTINENT. PT IS ON JIA ISOFLEX LOW AIRLOSS BED. IN AGREEMENT WITH PLAN OF CARE. Addendum: 02/11/21 at 1119 by DEMETRIO GUTIÉRREZ WNDNU Amended: Links added.
[2021-02-11] MEDS: ENSURE ENLIVE 237 ML LIQUID (VANILLA) PO SCH ×2 (13:00→17:00)
[2021-02-11] MEDS: ENOXAPARIN SODIUM 40 MG/0.4 ML DISP.SYRIN SQ SCH (13:02)
[2021-02-11] MEDS: IV D5W 1,000 ML IV PRN (17:14)
[2021-02-11] MEDS: VANCOMYCIN 1 GM in IV D5W 250 ML IV SCH (17:18)
[2021-02-11] MEDS: CLOTRIMAZOLE 1% 15 GM TUBE TP SCH (17:19)
[2021-02-11] MEDS ORDERED: Medication Not On Formulary EA (Memantine HCl/Donepezil HCl (Namzaric 28 mg-10 mg Capsul PO SCH (18:00)
--- NOTE | 2021-02-11 19:10 | NUR ---
RN NOTE RECEIVED PATIENT IN BED RESTING ALERT ORIENTED X1-2 VERBALLY RESPONSIVE ON 2L OXYGEN VIA NASAL CANNULA, O2:96% IV SITE IS ON RIGHT HAND INTACT PATENT IV D5W RUNNING 60CC/HR,CONDOM CATHETER IN PLACE URINE DRAINING YELLOW/CLEAR,SAFETY MEASURE IMPLEMENT BED IN LOW POSITION AND LOCKED,BED ALARM IS ON CONTINUE TO MONITOR.
--- NOTE | 2021-02-11 19:12 | NUR ---
RN CLOSING NOTES Patient is alert and oriented x 1/2. On 2 liters 02 via n/c with 02 sat of 99%. Condom cath applied to prevent further skin breakdown.Turned and repositioned q2h and prn. No c/o pain or discomfort. Bed is in lowest and locked position. Call light with in reach.Endorsed to next shift for GINNA.
[2021-02-11 20:00] VITALS: BP 108/71
[2021-02-11] MEDS: DONEPEZIL 5 MG TABLET PO SCH (21:37)
--- NOTE | 2021-02-11 22:00 | NUR ---
RN NOTE THERE IS AN ORDER FOR ENEMA STAT,PATIENT HAD BOWEL MOVEMENT AT 21:45,CALLED DR QUEVEDO SHE SAID HOLD IT FOR NOW NOTED AND CARRIED OUT.
[2021-02-12] VITALS: BP 118/58
[2021-02-12 05:41] VITALS: BP 100/58
[2021-02-12 05:56] LABS: BASOPHILS # (AUTO) 0.1 /CMM (0.0-0.2); EOSINOPHILS % (AUTO) 5.3 % (0.0-6.0); HEMATOCRIT 27 % (39-51); HEMOGLOBIN 9.1 g/dL (13.5-17.5); LYMPHOCYTES # (AUTO) 1.1 /CMM (0.8-4.8); LYMPHOCYTES % (AUTO) 10.8 % (20.0-44.0); MEAN CORPUSCULAR HGB CONC 33 g/dl (31.0-36.0); MEAN CORPUSCULAR VOLUME 93 fL (80-96); MONOCYTES # (AUTO) 1.2 /CMM (0.1-1.30); NEUTROPHILS # (AUTO) 6.9 /CMM (1.8-8.9); NEUTROPHILS % (AUTO) 70.9 % (43.0-81.0); PLATELET COUNT (AUTO) 202 /CMM (150-450); RED BLOOD CELL COUNT(AUTO) 2.97 MIL/uL (4.5-6.0); WHITE BLOOD COUNT (AUTO) 9.7 K/uL (4.3-11.0)
[2021-02-12 06:52] LABS: CALCIUM, SERUM 7.9 mg/dL (8.5-10.1); CREATININE 0.8 mg/dL (0.6-1.3); MAGNESIUM 1.9 mg/dL (1.8-2.4); PHOSPHORUS 2.2 mg/dL (2.5-4.9)
--- NOTE | 2021-02-12 07:30 | NUR ---
RN CLOSING NOTES Patient is alert and oriented x 1 On 2 liters 02 via n/c with 02 sat of 98%. Condom cath noted to prevent further skin breakdown.Turned and repositioned q2h and prn. No c/o pain or discomfort. Bed is in lowest and locked position. Call light with in reach. Addendum: 02/12/21 at 1727 by STEPHANIE OCONNOR RN RN OPENING NOTES
--- NOTE | 2021-02-12 07:37 | NUR ---
RN NOTE PATIENT REMAINS ON ALERT ORIENTED 1-2 ON 2L OXYGEN VIA NASAL CANNULA O2:96% NO SOB NOT ACUTE DISTRESS NOTED KEPT CLEAN AND DRY ALL THE TIME,IV D5W RUNNING 60CC/HR ALL NEEDS MET ENDORSE NEXT COMING SHIFT FOR CONTINUATION OF CARE
[2021-02-12 08:00] VITALS: BP 120/69
[2021-02-12] MEDS: MEMANTINE HCL 5 MG TABLET PO SCH ×2 (08:31→17:01)
[2021-02-12] MEDS: LEVOTHYROXINE SODIUM 75 MCG TABLET PO SCH (08:31)
[2021-02-12] MEDS: CEFEPIME 2 GM in IV D5W 100 ML IV SCH ×2 (08:31→19:38)
[2021-02-12] MEDS: AMLODIPINE BESYLATE 10 MG TABLET PO SCH (08:31)
[2021-02-12] MEDS: ENOXAPARIN SODIUM 40 MG/0.4 ML DISP.SYRIN SQ SCH (08:39)
[2021-02-12] MEDS: CLOTRIMAZOLE 1% 15 GM TUBE TP SCH ×2 (08:45→17:01)
[2021-02-12] MEDS: ENSURE ENLIVE 237 ML LIQUID (VANILLA) PO SCH ×3 (09:00→17:00)
[2021-02-12] MEDS ORDERED: K PHOS NEUTRAL 250 MG TABLET PO ONE (10:00)
[2021-02-12] MEDS: POTASSIUM CHLORIDE 20 MEQ TAB.PRT.SR PO SCH ×3 (10:04→13:02)
[2021-02-12] MEDS: VANCOMYCIN 1 GM in IV D5W 250 ML IV SCH (11:25)
[2021-02-12 12:00] VITALS: BP 125/77
--- NOTE | 2021-02-12 14:02 | NUR ---
Paper Bag Machine Operator consult: career services representative consult requested for patient from [facility], presenting with rash. Patient is a 86-year-old, male. SW met with patient at his bedside in the med-surg unit. Patient presented confused and was alert and oriented x2, name and time. Patient was unable to provide SW with adequate information to complete assessment as he presented confused. SW contacted patient's [facility], [place] ([address] [place] [address]; [phone]). VALERY spoke to the firm administrator at the facility, Irina. Irina stated that the patient's rash had started the weekend prior to the patient's hospitalization. The facility contacted the patient's PCP and put in an order for assisted home health to assess the patient prior to his admission at [facility]. Irina stated that the patient can return to the [facility]. PLAN: Patient will return to [facility] at the time of discharge. No further SS intervention at this time, however SW will remain available as needed.
--- NOTE | 2021-02-12 14:12 | NUR ---
Patient had a bm on 02/11/21 large bm and per pediatric clinical nurse specialist patient is =
--- NOTE | 2021-02-12 14:13 | NUR ---
Patient had a bm on 02/11/21 large bm and per mold shifter patient had one large bm and enema was not administered. Informed MD Derderian and per md to disregard it.
[2021-02-12] MEDS: IV D5W 1,000 ML IV PRN (14:17)
[2021-02-12 16:00] VITALS: BP 129/65
--- NOTE | 2021-02-12 18:44 | NUR ---
RN CLOSING NOTES Patient is alert and oriented On room air with 02 sat of 94%. Condom cath noted to prevent further skin breakdown.Turned and repositioned q2h and prn. No c/o pain or discomfort. Noted with urine output of 800 cc during shift and one moderate wet brief due to condom cath dislodging. Bed is in lowest and locked position. Call light with in reach.Will endorse to next shift for GINNA and to monitor patient's 02 saturations on room air.
[2021-02-12 20:00] VITALS: BP 110/71
[2021-02-12] MEDS ORDERED: IV NS 0.9% 1,000 ML IV SCH (20:00)
--- NOTE | 2021-02-12 20:00 | NUR ---
RN NOTE RECEIVED PT IN BED AWAKE AND CONFUSED. PT IS ON RA SATING 94% TO 95%. PT HAS CONDOM CATH DRAINING YELLOW URINE. SAFETY MEASURES IN PLACE.
[2021-02-12] MEDS: DONEPEZIL 5 MG TABLET PO SCH (21:36)
[2021-02-12] MEDS: VANCOMYCIN 0.75 GM in IV D5W 250 ML IV SCH (22:47)
[2021-02-13 04:00] VITALS: BP 123/75
[2021-02-13 07:03] LABS: CALCIUM, SERUM 7.7 mg/dL (8.5-10.1); CREATININE 0.8 mg/dL (0.6-1.3); POTASSIUM 3.7 mmol/L (3.5-5.1)
--- NOTE | 2021-02-13 07:09 | NUR ---
report given to oncoming shift for dena.
[2021-02-13] MEDS: LEVOTHYROXINE SODIUM 75 MCG TABLET PO SCH (07:46)
--- NOTE | 2021-02-13 07:47 | NUR ---
MS/RN OPENING NOTES RECEIVED PATIENT ON BED SLEEPING, EASILY AROUSAL BY LIGHT TOUCH. PATIENT IN ROOM AIR SATURATION 96%. PATIENT IN NO APPARENT RESPIRATORY DISTRESS NOTED. NO SIGN AND SYMPTOM OF PAIN NOTED. WILL CONTINUE TO MONITOR.
[2021-02-13 08:00] VITALS: BP 125/72
[2021-02-13] MEDS: CEFEPIME 2 GM in IV D5W 100 ML IV SCH ×2 (08:17→21:46)
[2021-02-13] MEDS: AMLODIPINE BESYLATE 10 MG TABLET PO SCH (08:19)
[2021-02-13] MEDS: MEMANTINE HCL 5 MG TABLET PO SCH ×2 (08:19→16:11)
[2021-02-13] MEDS: ENSURE ENLIVE 237 ML LIQUID (VANILLA) PO SCH ×3 (08:22→17:24)
[2021-02-13] MEDS: CLOTRIMAZOLE 1% 15 GM TUBE TP SCH ×2 (08:23→17:25)
[2021-02-13] MEDS: ENOXAPARIN SODIUM 40 MG/0.4 ML DISP.SYRIN SQ SCH (08:31)
[2021-02-13] MEDS ORDERED: K PHOS NEUTRAL 250 MG TABLET PO ONE (10:00)
[2021-02-13] MEDS: VANCOMYCIN 0.75 GM in IV D5W 250 ML IV SCH ×2 (10:13→22:06)
--- NOTE | 2021-02-13 12:30 | NUR ---
MS/RN NOTES PATIENT SATURATION 88% IN ROOM AIR WAS NOTED, PLACED 3 L OXYGEN VIA NASAL CANNULA NO RESPIRATORY DISTRESS WAS NOTED. LATEST SATURATION 96%. WILL CONTINUE TO MONITOR.
[2021-02-13 18:09] VITALS: BP 112/58
--- NOTE | 2021-02-13 18:58 | NUR ---
MS/RN CLOSING NOTES PATIENT IS ON BED CONFUSED. PATIENT IS ON 3L OXYGEN VIA NASAL CANNULA SATURATION 97%. PATIENT IN NO APPARENT RESPIRATORY DISTRESS NOTED. NO COMPLAINED OF PAIN NOTED AT THIS TIME. SEEN AND EXAMINED BY MD WITH ORDERS MADE AND CARRIED OUT. ALL DUE MEDICATIONS WAS GIVE. IV ACCESS AT RIGHT HAND # 20 G PATENT AND INTACT. SAFETY PRECAUTION WAS IN PLACED. BED IN LOWEST POSITION AND LOCKED. SIDE RAILS LOCKED X2. CALL LIGHT WITH IN REACH. WILL ENDORSED TO VP SALES FOR GINNA.
[2021-02-13 20:00] VITALS: BP 132/72
--- NOTE | 2021-02-13 20:00 | NUR ---
MS RN NOTES PATIENT IS ON BED CONFUSED. PATIENT IS ON 3L OXYGEN VIA NASAL CANNULA SATURATION 97%. NO SOB NO DISTRESS NOTED,V/S STABLE AFEBRILE NO COMPLAINED OF PAIN NOTED AT THIS TIME. ALL DUE MEDICATIONS GIVEN ORDERED , IV ACCESS AT RIGHT HAND # 20 G NOTED LEAKING REMOVED AND REINSERTED ON RIGHT HAND g#22 X 1 ATTEMPT PATENT AND INTACT. SAFETY PRECAUTION WAS IN PLACED. BED IN LOWEST POSITION AND LOCKED. SIDE RAILS LOCKED X2. CALL LIGHT WITH IN REACH. WILL, PTS NOTED CONGESTED SUCTION SECRETION DONE AND PRN ,HOB ELEVATED FOR ASPIRATION PRECAUTION, WILL CONTINUE TO MONITOR PTS.
[2021-02-13] MEDS: DONEPEZIL 5 MG TABLET PO SCH (22:06)
[2021-02-14 04:00] VITALS: BP 113/68
[2021-02-14 06:43] LABS: CALCIUM, SERUM 7.6 mg/dL (8.5-10.1); CREATININE 0.9 mg/dL (0.6-1.3); PHOSPHORUS 2.7 mg/dL (2.5-4.9); POTASSIUM 3.8 mmol/L (3.5-5.1)
--- NOTE | 2021-02-14 06:59 | NUR ---
RN CLOSING NOTES Patient is alert with confusion On o2 via nc at 2l lpm with 02 sat of 96-97%. Condom cath noted to prevent further skin breakdown.Turned and repositioned q2h and prn. No c/o pain or discomfort. Noted with urine output of 500cc during shift Bed is in lowest and locked position. Call light with in reach.Will endorse to next shift for GINNA and continuity of care.
[2021-02-14] MEDS: LEVOTHYROXINE SODIUM 75 MCG TABLET PO SCH (07:30)
--- NOTE | 2021-02-14 07:40 | NUR ---
RN OPENING NOTES RECEIVED PATIENT IN BED. ASLEEP. PATIENT ON OXYGEN, 2 LPM VIA NASAL CANULA SATURATING AT 99%. NO S/S OF PAIN SUCH FACIAL GRIMACING, MOANING OR GUARDING. CONDOM CATH IN PLACE DRAINING CLEAR YELLOW URINE. R HAND IV ACCESS G #[address] SAFETY PRECAUTIONS IN PLACE; BED IN LOW POSITION AND LOCKED, RAILS UP X2, CALL LIGHT WITHIN REACH. WILL CONTINUE TO MONITOR PATIENT.
[2021-02-14] MEDS: MEMANTINE HCL 5 MG TABLET PO SCH ×2 (08:26→16:15)
[2021-02-14] MEDS: ENSURE ENLIVE 237 ML LIQUID (VANILLA) PO SCH ×3 (08:26→16:15)
[2021-02-14] MEDS: AMLODIPINE BESYLATE 10 MG TABLET PO SCH (08:26)
--- NOTE | 2021-02-14 08:27 | NUR ---
AMBER RN NOTES PATIENT CONGESTED, COUGHING WITH FOOD. VIDEO SWALLOW EVALUATION SCHEDULED FOR TODAY. MORNING MEDS NON-ADMINISTERED.
[2021-02-14] MEDS: CEFEPIME 2 GM in IV D5W 100 ML IV SCH ×2 (08:32→20:42)
[2021-02-14] MEDS: CLOTRIMAZOLE 1% 15 GM TUBE TP SCH ×2 (09:14→16:15)
[2021-02-14] MEDS: ENOXAPARIN SODIUM 40 MG/0.4 ML DISP.SYRIN SQ SCH (10:03)
[2021-02-14] MEDS: VANCOMYCIN 0.75 GM in IV D5W 250 ML IV SCH ×2 (10:07→23:45)
[2021-02-14 10:13] LABS: BASOPHILS # (AUTO) 0.1 K/uL (0.0-0.2); BASOPHILS % (AUTO) 0.7 % (0.0-2.0); EOSINOPHILS % (AUTO) 5.3 % (0.0-6.0); HEMATOCRIT 29 % (39-51); HEMOGLOBIN 9.5 g/dL (13.5-17.5); LYMPHOCYTES # (AUTO) 1.2 K/uL (0.8-4.8); LYMPHOCYTES % (AUTO) 9.4 % (20.0-44.0); MEAN CORPUSCULAR HGB CONC 33 g/dl (31.0-36.0); MEAN CORPUSCULAR VOLUME 92 fL (80-96); MONOCYTES # (AUTO) 1.2 K/uL (0.1-1.30); MONOCYTES % (AUTO) 9.1 % (2.0-12.0); NEUTROPHILS # (AUTO) 9.7 K/uL (1.8-8.9); NEUTROPHILS % (AUTO) 75.5 % (43.0-81.0); PLATELET COUNT (AUTO) 268 K/uL (150-450); RED BLOOD CELL COUNT(AUTO) 3.13 MIL/uL (4.5-6.0); WHITE BLOOD COUNT (AUTO) 12.9 K/uL (4.3-11.0)
[2021-02-14] MEDS ORDERED: BARIUM SULFATE 148 GM SUSP.RECON PO ONE (11:49)
[2021-02-14] MEDS ORDERED: BARIUM SULFATE 240 ML ORAL.SUSP PO ONE (11:49)
--- NOTE | 2021-02-14 11:59 | NUR ---
RN NOTES PATIENT DID NOT PASS VIDEO SWALLOW EVAL. PATIENT NPO.
[2021-02-14 13:14] VITALS: BP 124/70
--- NOTE | 2021-02-14 16:50 | NUR ---
care taken over, just staring at the interlocutor, did not make any contact. Failed video swallow test, remains NPO. Plan: continue with abx No hydration Pul/ID to follow up per attending.
[2021-02-14 20:00] VITALS: BP 125/70
--- NOTE | 2021-02-14 20:00 | NUR ---
RN NOTE RECEIVED PT OPEN EYES TO VERBAL TACTILE. COUGH AND CONGESTION NOTED. ON O2 AT 2LPM SATING 91-92 %. TITRATED TO 4L. KEPT HOB ELEVATED. NO SIGNS OF DISTRESS NOTED. PT ON NPO. IV ON RHAND PATENT AND INTACT, FLUSHES WELL. WILL CONTINUE TO MONITOR. ALL SAFETY MEASURES IN PLACE.
[2021-02-14] MEDS: DONEPEZIL 5 MG TABLET PO SCH (22:00)
--- NOTE | 2021-02-15 01:21 | NUR ---
RN NOTE SUCTIONED NEEDED. NO DISTRESS NOTED. CONTINUE ON 4L O2, O2 SAT AT 98 %. WILL CONTINUE TO MONITOR. KEPT HOB ELEVATED.
[2021-02-15 04:00] VITALS: BP 114/64
--- NOTE | 2021-02-15 07:00 | NUR ---
RN NOTE PT CONTINUE ON O2 AT 4L, FREQUENT SUCTIONING NEEDED. NO SIGNS OF DISTRESS NOTED. KEPT HOB ELEVATED. KEPT CLEAN AND DRY. WILL ENDORSE TO NEXT SHIFT NURSE FOR GINNA.
--- NOTE | 2021-02-15 07:15 | NUR ---
RN OPENING NOTES PATIENT RECEIVED IN BED ASLEEP IN SEMI-FOWLERS POSITION. PATIENT ON O2 THERAPY VIA NC AT 4 LPM. NO S/S OF PAIN SUCH FACIAL GRIMACING, MOANING OR GUARDING. R HAND IV ACCESS G #22 INTACT AND PATENT. SAFETY PRECAUTIONS IMPLEMENTED, BED LOCKED IN LOW POSITION, SIDE RAILS UP X2, CALL LIGHT WITHIN REACH. WILL CONTINUE TO MONITOR AND PROVIDE CARE THROUGHOUT SHIFT.
[2021-02-15 07:22] LABS: CALCIUM, SERUM 7.6 mg/dL (8.5-10.1); CREATININE 0.9 mg/dL (0.6-1.3); POTASSIUM 3.4 mmol/L (3.5-5.1)
[2021-02-15 08:00] VITALS: BP 90/50
[2021-02-15] MEDS: CEFEPIME 2 GM in IV D5W 100 ML IV SCH ×2 (08:27→20:28)
[2021-02-15] MEDS: ENSURE ENLIVE 237 ML LIQUID (VANILLA) PO SCH ×3 (09:00→17:00)
[2021-02-15] MEDS: CLOTRIMAZOLE 1% 15 GM TUBE TP SCH ×2 (09:00→17:00)
[2021-02-15] MEDS: AMLODIPINE BESYLATE 10 MG TABLET PO SCH (09:00)
[2021-02-15] MEDS: MEMANTINE HCL 5 MG TABLET PO SCH ×2 (09:00→17:00)
[2021-02-15] MEDS ORDERED: POTASSIUM CHLORIDE 20 MEQ TAB.PRT.SR PO ONE (10:00)
[2021-02-15] MEDS: LEVOTHYROXINE SODIUM 75 MCG TABLET PO SCH (10:07)
[2021-02-15] MEDS: ENOXAPARIN SODIUM 40 MG/0.4 ML DISP.SYRIN SQ SCH (10:12)
[2021-02-15] MEDS: IV D5/ 0.9% NACL 1,000 ML IV PRN (10:16)
[2021-02-15] MEDS: VANCOMYCIN 0.75 GM in IV D5W 250 ML IV SCH (10:44)
[2021-02-15 16:00] VITALS: BP 111/63
--- NOTE | 2021-02-15 18:33 | NUR ---
unable to give meds PO due to patient not being able to follow commands and due to aspiration precautions. was also informed that videofluoroscopic swallow showed aspiration.
--- NOTE | 2021-02-15 18:42 | NUR ---
RN CLOSING NOTES PATIENT IN BED RESTING IN HIGH-FOWLERS POSITION. PATIENT ON O2 THERAPY VIA NC AT 4 LPM. NO S/S OF PAIN SUCH FACIAL GRIMACING, MOANING OR GUARDING. R HAND IV ACCESS G #22 INTACT AND PATENT. SAFETY PRECAUTIONS IMPLEMENTED, BED LOCKED IN LOW POSITION, SIDE RAILS UP X2, CALL LIGHT WITHIN REACH. SPOKE WITH DAUGHTER SALVADOR ABOUT POSSIBLE DNR. SALVADOR THEN SPOKE WITH OBDULIA BOJORQUEZ ABOUT MEASURES. DNR/DNI DECIDED FOR CLIENT. WILL ENDORSE CARE TO UPCOMING SHIFT.
[2021-02-15 20:00] VITALS: BP 117/63
[2021-02-15] MEDS: DONEPEZIL 5 MG TABLET PO SCH (21:35)
[2021-02-16] MEDS: IV D5/ 0.9% NACL 1,000 ML IV PRN ×2 (01:26→14:37)
[2021-02-16 02:00] VITALS: BP 119/63
[2021-02-16 04:00] VITALS: BP 119/63
[2021-02-16] MEDS: LEVOTHYROXINE SODIUM 75 MCG TABLET PO SCH (07:30)
[2021-02-16 07:43] LABS: CALCIUM, SERUM 7.9 mg/dL (8.5-10.1); CREATININE 0.9 mg/dL (0.6-1.3); POTASSIUM 3.4 mmol/L (3.5-5.1)
--- NOTE | 2021-02-16 07:50 | NUR ---
MS/RN OPENING NOTES RECEIVED PATIENT IN BED RESTING IN HIGH-FOWLERS POSITION. PATIENT ON O2 THERAPY VIA NC AT 4 LPM. NO S/S OF PAIN SUCH FACIAL GRIMACING, MOANING OR GUARDING NOTED AT THIS TIME. R HAND IV ACCESS G #22 INTACT AND PATENT ON HEPLOCK. SAFETY PRECAUTIONS IMPLEMENTED, BED LOCKED IN LOW POSITION, SIDE RAILS UP X2, CALL LIGHT WITHIN REACH. SPOKE WITH DAUGHTER SALVADOR ABOUT POSSIBLE DNR. DNR/DNI DECIDED FOR CLIENT. WILL CONTINUE TO MONITOR PATIENT.
[2021-02-16 08:00] VITALS: BP_SYST 107; BP_SYST 127; BP_DIAS 52; BP_DIAS 91
[2021-02-16] MEDS: MEMANTINE HCL 5 MG TABLET PO SCH ×2 (09:00→17:00)
[2021-02-16] MEDS: ENSURE ENLIVE 237 ML LIQUID (VANILLA) PO SCH ×3 (09:00→17:00)
[2021-02-16] MEDS: AMLODIPINE BESYLATE 10 MG TABLET PO SCH (09:00)
[2021-02-16] MEDS: CEFEPIME 2 GM in IV D5W 100 ML IV SCH ×2 (10:01→20:11)
[2021-02-16] MEDS: POTASSIUM CL. PREMIX PERIPHER. 50 ML IV SCH ×4 (10:01→14:33)
[2021-02-16] MEDS: ENOXAPARIN SODIUM 40 MG/0.4 ML DISP.SYRIN SQ SCH (10:02)
[2021-02-16] MEDS: CLOTRIMAZOLE 1% 15 GM TUBE TP SCH ×2 (10:02→17:19)
[2021-02-16 10:51] LABS: BASOPHILS # (AUTO) 0.1 K/uL (0.0-0.2); EOSINOPHILS % (AUTO) 9.8 % (0.0-6.0); HEMATOCRIT 29 % (39-51); HEMOGLOBIN 9.4 g/dL (13.5-17.5); LYMPHOCYTES % (AUTO) 7.9 % (20.0-44.0); MEAN CORPUSCULAR HGB CONC 32 g/dl (31.0-36.0); MEAN CORPUSCULAR VOLUME 93 fL (80-96); MONOCYTES # (AUTO) 1.4 K/uL (0.1-1.30); MONOCYTES % (AUTO) 11.3 % (2.0-12.0); NEUTROPHILS # (AUTO) 8.4 K/uL (1.8-8.9); PLATELET COUNT (AUTO) 272 K/uL (150-450); RED BLOOD CELL COUNT(AUTO) 3.11 MIL/uL (4.5-6.0); WHITE BLOOD COUNT (AUTO) 12.1 K/uL (4.3-11.0)
[2021-02-16 12:38] VITALS: BP 102/52
[2021-02-16 16:00] VITALS: BP 106/58
--- NOTE | 2021-02-16 19:23 | NUR ---
MS/RN CLOSING NOTES PATIENT IN BED RESTING IN HIGH-FOWLERS POSITION. PATIENT ON O2 THERAPY VIA NC AT 4 LPM. NO S/S OF PAIN SUCH FACIAL GRIMACING, MOANING OR GUARDING NOTED AT THIS TIME. R HAND IV ACCESS G #22 INTACT AND PATENT WITH A RUNNING D5NS @80 ML/HR. STILL ON NPO. SAFETY PRECAUTIONS IMPLEMENTED, BED LOCKED IN LOW POSITION, SIDE RAILS UP X2, CALL LIGHT WITHIN REACH. CURRENTLY ON DNR STATUS. WILL ENDORSE TO THE NEXT SHIFT FOR CONTINUITY OF CARE.
--- NOTE | 2021-02-16 20:00 | NUR ---
MS RN NOTES PATIENT IN BED. ALERT AND VERBAL. O2 TITRATED TO 5LPM BECAUSE OF LOW SATURATION OF 93%. HOB ELEVATED. NO C/O PAIN BRI. D5 NS RUNNING AT 80 ML/HR THE MOMENT. SAFETY IN PLACE: BED IN LOWEST, LOCKED POSITION. HOB ELEVATED, SIDE RAILS UP X2, CALL LIGHT WITHIN REACH. WILL CONTINUE TO MONITOR.
[2021-02-16] MEDS: DONEPEZIL 5 MG TABLET PO SCH (22:00)
--- NOTE | 2021-02-16 22:00 | NUR ---
MS RN NOTES PATIENT NPO. ARICEPT PO NON-ADMINISTERED.
--- NOTE | 2021-02-17 07:02 | NUR ---
DOWEL STICKER OPERATOR CLOSING PATIENT IN BED WITH EYES CLOSED, EASY TO AROUSE. A/OX4. NO S/S OF APPARENT DISTRESS, TOLERATING 2LPM OF O2 VIA NC. BUSSER IN PLACE. PICTURES TAKEN. SAFETY KEPT IN PLACE THE WHOLE SHIFT. ALL NEEDS ATTENDED. ALL SCHED MEDS ADMINISTERED. NO SIGNIFICANT CHANGE SINCE LAST SHIFT. PRUDENCE CONSENT SIGNED. CHECKLIST DONE AND CHARTED. WILL ENDORSE CARE TO MORNING SHIFT RN. Addendum: 02/17/21 at 0704 by INESSA BHAKTA RN MS RN CLOSING PATIENT IN BED WITH EYES CLOSED, EASY TO AROUSE. A/OX3. NO S/S OF APPARENT DISTRESS, TOLERATING 5L OF O2 . PICTURES TAKEN. SAFETY KEPT IN PLACE THE WHOLE SHIFT. ALL NEEDS ATTENDED. ALL SCHED MEDS ADMINISTERED. IV D5 1/2 NS RUNNING @75 ML/HR. NO SIGNIFICANT CHANGE SINCE LAST SHIFT. WILL ENDORSE CARE TO MORNING SHIFT RN.
[2021-02-17 07:06] LABS: CREATININE 0.7 mg/dL (0.6-1.3); POTASSIUM 3.6 mmol/L (3.5-5.1)
[2021-02-17] MEDS: LEVOTHYROXINE SODIUM 75 MCG TABLET PO SCH (07:30)
--- NOTE | 2021-02-17 07:30 | NUR ---
MS/RN AM NOTES RECEIVED PATIENT IN BED RESTING IN HIGH-FOWLERS POSITION. PATIENT ON O2 THERAPY VIA NC AT 4 LPM. O2 SAT AT 95%. NO SOB, NOT IN ANY DISTRESS, NO S/S OF PAIN SUCH FACIAL GRIMACING, MOANING OR GUARDING NOTED AT THIS TIME. R HAND IV ACCESS G #22 FLUSHES WELL, SITE CLEAR. SEE NURSING FLOWSHEET FOR SKIN ISSUES.SAFETY PRECAUTIONS IMPLEMENTED, BED LOCKED IN LOW POSITION, SIDE RAILS UP X2, CALL LIGHT WITHIN REACH. FOR POSSIBLE HOSPICE EVAL. WILL CONTINUE TO MONITOR PATIENT.
[2021-02-17 08:00] VITALS: BP 126/68
[2021-02-17] MEDS: MEMANTINE HCL 5 MG TABLET PO SCH ×2 (08:07→17:00)
[2021-02-17] MEDS: ENSURE ENLIVE 237 ML LIQUID (VANILLA) PO SCH ×3 (08:07→17:00)
[2021-02-17] MEDS: CEFEPIME 2 GM in IV D5W 100 ML IV SCH ×2 (08:07→20:10)
[2021-02-17] MEDS: ENOXAPARIN SODIUM 40 MG/0.4 ML DISP.SYRIN SQ SCH (08:10)
[2021-02-17] MEDS: AMLODIPINE BESYLATE 10 MG TABLET PO SCH (08:13)
[2021-02-17] MEDS: CLOTRIMAZOLE 1% 15 GM TUBE TP SCH ×2 (08:20→17:03)
--- NOTE | 2021-02-17 09:30 | NUR ---
RN NOTES DUE MEDS GIVEN.
[2021-02-17] MEDS: IV D5/ 0.9% NACL 1,000 ML IV PRN (13:31)
[2021-02-17 16:00] VITALS: BP 122/64
--- NOTE | 2021-02-17 19:42 | NUR ---
MS RN CLOSING NOTES PATIENT IN BED WITH EYES CLOSED, RESPONDS EASILY, A/OX3. NO S/S OF APPARENT DISTRESS, TOLERATING 4L OF O2 . MADE COMFORTABLE. SAFETY KEPT IN PLACE THE WHOLE SHIFT. ALL NEEDS ATTENDED. ALL SCHED MEDS ADMINISTERED. IV D5 1/2 NS RUNNING @80 ML/HR. NO SIGNIFICANT CHANGE NOTED.WILL ENDORSE CARE TO NEXT SHIFT RN.
[2021-02-17 20:00] VITALS: BP 139/74
[2021-02-17] MEDS: DONEPEZIL 5 MG TABLET PO SCH (22:00)
[2021-02-18] MEDS: IV D5/ 0.9% NACL 1,000 ML IV PRN (06:12)
--- NOTE | 2021-02-18 07:15 | NUR ---
RN NOTES PATIENT OBSERVED IN BED, AWAKE NON VERBAL, ON O2 VIA NC 02SAT OF 100% BREATHING EVEN AND UNLABORED, IVF D5 NS @ 80 ML/HR RUNNING, IV SITE PATENT UPON ASSESSMENT, HOB ELEVATED, NPO ORDERED FOR ASPIRATION PRECAUTION, BED WHEELS LOCK, CALL LIGHT WITHIN REACH. WILL CONTINUE TO MONITOR.
--- NOTE | 2021-02-18 07:15 | NUR ---
RN Closing Notes Patient was last seen in bed with his eyes closed. Pt's on 4 liters of 02 via NC. Patient's in no respiratory distress. Patient's IV access is intact and patent. Safety measures are kept in place: Bed locked, bed alarm on, side rails up x3, and call light within reach of the patient. Endorsed care to the day shift nurse.
[2021-02-18] MEDS: LEVOTHYROXINE SODIUM 75 MCG TABLET PO SCH (07:30)
[2021-02-18 07:53] VITALS: BP 108/63
[2021-02-18] MEDS: CEFEPIME 2 GM in IV D5W 100 ML IV SCH (08:04)
[2021-02-18] MEDS: ENSURE ENLIVE 237 ML LIQUID (VANILLA) PO SCH ×3 (08:15→16:07)
[2021-02-18] MEDS: MEMANTINE HCL 5 MG TABLET PO SCH ×2 (08:16→16:07)
[2021-02-18 08:57] LABS: CALCIUM, SERUM 7.8 mg/dL (8.5-10.1); CREATININE 0.8 mg/dL (0.6-1.3); POTASSIUM 3.3 mmol/L (3.5-5.1)
[2021-02-18 09:00] VITALS: BP 112/72
[2021-02-18] MEDS ORDERED: AMLODIPINE BESYLATE 5 MG TABLET PO SCH (09:00)
[2021-02-18] MEDS: ENOXAPARIN SODIUM 40 MG/0.4 ML DISP.SYRIN SQ SCH (09:00)
--- NOTE | 2021-02-18 09:30 | NUR ---
RN NOTE HOLD ENOXAPARIN ORDERED, LATEST CBC TAKEN AT 02/16, MD AWARE, CHARGE NURSE AWARE. WILL CONTINUE TO MONITOR PATIENT.
[2021-02-18] MEDS: CLOTRIMAZOLE 1% 15 GM TUBE TP SCH ×3 (09:35→16:19)
--- NOTE | 2021-02-18 14:30 | NUR ---
RN NOTES REPORT GIVEN TO CANDIDO KASPER [facility] FOR PATIENT TO BE ADMITTED TO [facility]. Addendum: 02/18/21 at 1527 by ROSA GARCIA RN PATIENT TO BE DISCHARGE EXPECTED TIME OF GOURMET COFFEE ATTENDANT IS AT 1700.
--- NOTE | 2021-02-18 15:54 | NUR ---
POULTRY VETERINARIAN NOTE DISCONTINUED IV SITE ON RIGHT HAND ORDERED ASEPTIC TECHNIQUE OBSERVED, NO BLEEDING NOTED NO S/S OF INFECTION.
--- NOTE | 2021-02-18 17:15 | NUR ---
BIOTECH PRODUCTION SPECIALIST NOTE PATIENT ON 02 VIA NASAL CANULA @ 4LPM, BREATHING EVEN AND UNLABORED, VTS WNL, NO COMPLAINS OF PAIN, ALERT AND ORIENTED X3 , ABLE TO VERBALIZE NEEDS, NO COMPLAINS OF PAIN, GAVE REPORT TO TRANSPORT, TRANSFERED FROM BED TO [facility], 02 TANK FULL UPON TRANSPORT, WHEELED OUT OF HOSPITAL VIA [facility] ON STABLE CONDITION, SAFETY MEASURES OBSERVED.
== END 2021-02-18 17:00 | DRG 871 ==
LOC: ER 19:24 → TELE1 23:28 → MEDSG1 02-12 12:20
PROVIDERS: ADMIT Internal Medicine
DX: A41.9 Sepsis, unspecified organism (principal); J96.01 Acute respiratory failure with hypoxia; R65.21 Severe sepsis with septic shock; N17.0 Acute kidney failure with tubular necrosis; G93.41 Metabolic encephalopathy; J69.0 Pneumonitis due to inhalation of food and vomit; E87.0 Hyperosmolality and hypernatremia; E87.2 Acidosis; J98.11 Atelectasis; N39.0 Urinary tract infection, site not specified; E03.9 Hypothyroidism, unspecified; F03.90 Unspecified dementia, unspecified severity, without behavioral disturbance, psychotic disturbance, mood disturbance, and anxiety; Z20.822 Contact with and (suspected) exposure to COVID-19; E78.5 Hyperlipidemia, unspecified; K21.9 Gastro-esophageal reflux disease without esophagitis; Z79.899 Other long term (current) drug therapy; E86.1 Hypovolemia; K57.90 Diverticulosis of intestine, part unspecified, without perforation or abscess without bleeding; Z66 Do not resuscitate; Z51.5 Encounter for palliative care; F09 Unspecified mental disorder due to known physiological condition; K56.41 Fecal impaction; Z87.440 Personal history of urinary (tract) infections; Z87.891 Personal history of nicotine dependence; I12.9 Hypertensive chronic kidney disease with stage 1 through stage 4 chronic kidney disease, or unspecified chronic kidney disease; N18.9 Chronic kidney disease, unspecified
CPT/HCPCS: 36415; 36600; 70450-TC; 71045-TC; 74018; 74230-TC; 80048-TC; 80061-TC; 80076-TC; 80164-TC; 80202-TC; 83605-TC; 83735-TC; 83880; 84100-TC; 84484-TC; 85025-TC; 85730-TC; 87040-TC; 87081-TC; 87086-TC; 92526; 92611-TC; A4349; C9803; G0378; J0692; J1650; J2185; J3370; J3480; J3490; J7030; J7042; J7050; J7060; J7070; U0003